=== PATIENT | female | born 1935 | race Caucasian/White ===

== ENCOUNTER → 2017-09-14 | Outpatient (CLI) | payer MEDICARE ==
[~2017-09-14] MED LIST: AMLO2.5T PO; AMLO5TAB2 PO; APIX5TAB PO; ASPI-587 PO; ATOR10TA66 PO; BENA20TA2 PO; BNZ20T PO; Benazepril PO; CETI10CA PO; CHOLESTROL MED; DILT240C90 PO; LETR2.5T5 PO; METO-395 PO; METO25TA2 PO; MULT-974 PO
--- NOTE | 2017-09-14 11:24 | Diagnostic Imaging Report ---
INDICATION: Abnormal bone density. COMPARISON: Comparison is made with prior study from 01/01/2015. EXAMINATION: Bone mineral analysis of the lumbar spine and both hips was performed. FINDINGS: The bone mineral density of the lumbar spine is 0.920 with a T score of -2.3. This compares with 1.011 and -1.6. The bone mineral density of the left femoral neck is 0.680 with a T score of -2.6. This compares with 0.726 and -2.2. The bone mineral density of right femoral neck is 0.700 with a T score of -2.4. This compares with 0.709 and -2.4. IMPRESSION: Findings consistent with osteopenia of the lumbar spine and right femoral neck with osteoporosis of the left femoral neck. Dictated by: Dictated on workstation # [id number]
== END ==
LOC: RAD 09:05
PROVIDERS: ATTEND Internal Medicine
DX: M81.0 Age-related osteoporosis without current pathological fracture (principal)
CPT/HCPCS: 77080